=== PATIENT | female | born 1950 | race Caucasian/White ===

== ENCOUNTER 2022-01-10 22:07 | Inpatient (IN) ==
[2022-01-10] MEDS: SODIUM CHLORIDE 1,000 ML IV STA (22:37)
[2022-01-10 22:40] LABS: BASOPHILS % (AUTO) 0.1 % (0.0-3.0); HEMATOCRIT 27.3 % (37.0-47.0); IMMATURE GRANULOCYTE # (AUTO) 0.2 (0.0-1.0); IMMATURE GRANULOCYTE % (AUTO) 1.1 % (0.0-5.0); LYMPHOCYTES # (AUTO) 0.3 K/uL (0.60-3.4); LYMPHOCYTES % (AUTO) 1.5 (10.0-50.0); MEAN CORPUSCULAR HEMOGLOBIN 30.1 pg (27.0-31.0); MEAN CORPUSCULAR VOLUME 91.3 fl (81.0-99.0); MONOCYTES # (AUTO) 1.3 K/uL (0.4-2.0); MONOCYTES % (AUTO) 7.4 (0-10); NEUTROPHILS # (AUTO) 15.2 K/ul (2.0-6.9); NEUTROPHILS % (AUTO) 89.9 % (42.2-75.2); PLATELET COUNT 268 10^3/uL (140-440); RDW COEFFICIENT OF VARIATION 13.3 % (11.6-14.8); RED BLOOD COUNT 2.99 10^6/ul (4.20-5.40); WHITE BLOOD COUNT 16.96 K/ul (4.6-10.2)
--- NOTE | 2022-01-10 22:41 | DI ---
EXAM: Portable chest HISTORY: Fever COMPARISON: Single-view chest 03/10/2021 FINDINGS: Patient is mildly rotated to the left. Sternal wire sutures and to prostatic heart valve are noted. The cardiomediastinal silhouette is stable. There is a stable right-sided MediPort shan ter There is blunting of the left lateral costophrenic angle. Partial obscuration left hemidiaphrag m which may be related to left basilar atelectasis and/or pneumonia. IMPRESSION: Prior mediastinotomy with two prostatic heart valves. Left basilar atelectasis and/or pneumonia with likely trace left effusion
[2022-01-10 22:49] LABS: ABG O2 HGB 95.4 % (95-100); BEecf 30.4 (-2.0-3.0); COHb 3.7 (0.5-1.5); MetHb 1.2 (0-1.5); TCO2 53.6 (19-24); sO2 99.7 % (94-98); tHb 9.2 g/dl (11.7-17.4)
[2022-01-10 22:53] LABS: ALANINE AMINOTRANSFERASE 17.4 U/L (0-35); ALBUMIN 3.6 g/dL (3.5-5.0); ALKALINE PHOSPHATASE 72.1 U/L (53-141); ASPARTATE AMINO TRANSFERASE 45.3 U/L (14-36); BILIRUBIN,TOTAL 0.43 mg/dL (0.2-1.3); CALCIUM 8.48 mg/dL (8.4-10.2); CREATINE KINASE 21.7 U/L (30-135); CREATININE 0.74 mg/dL (0.60-1.30); GLUCOSE 205.9 mg/dL (74-106); POTASSIUM 3.39 mmol/L (3.5-5.1); TOTAL PROTEIN 7.25 g/dL (6.3-8.2)
[2022-01-10] MEDS ORDERED: DUONEB NEB STA ×2 (22:53→23:37)
[2022-01-10] MEDS ORDERED: DUONEB NEB ONE (22:53)
[2022-01-10 22:59] LABS: MOLECULAR FLU A NEGATIVE BY NAAT (NEGATIVE); MOLECULAR FLU B NEGATIVE BY NAAT (NEGATIVE)
--- NOTE | 2022-01-10 23:00 | ED.PDOC ---
General ED Provider: Dr. TIA OCHOA Chief Complaint: Fever Stated Complaint: Comes to the Er with fever and not acting normal. Less responsive to questions. She is a [place] resident. Time Seen by Provider: 01/10/22 22:14 Primary Care Provider: WALKER BAUM MD Nursing and Triage Documentation Reviewed and Agree: Yes Does patient meet sepsis criteria?: No System Inflammatory Response Syndrome: Not Applicable Sepsis Protocol: For patient's 13 years and over: Temp is 96.8 and below OR 101 and greater Pulse >90 BPM Resp >20/minute Acutely Altered Mental Status Are patient's symptoms suggestive of a new infection, such as: -Pneumonia -Skin, Soft Tissue -Endocarditis -UTI -Bone, Joint Infection -Implantable Device -Acute Abdominal Infection -Wound Infection -Meningitis -Blood Stream Catheter Infection -Unknown Review of Systems Review Of Systems Constitutional: Reports Fever Respiratory: Denies Cough Cardiac: Denies Chest pain GI: Denies Nausea or Vomiting All Other Systems: Other (limted) [facility] Medical History (Updated 01/10/22 @ 23:13 by TIA OCHOA MD) CHF (congestive heart failure) Diabetes mellitus Hypothyroidism Pneumonia Respiratory failure Social History (Updated 01/10/22 @ 23:00 by TIA OCHOA MD) Housing: [facility] Surgical History (Updated 01/10/22 @ 23:00 by TIA OCOHA MD) History of permanent cardiac pacemaker placement Physical Exam Physical Exam Appearance: Reports Ill-appearing Ill-appearing: Moderate Pain Distress: Mild Eyes: Reports BRITTANY, EOMI and Conjunctiva clear ENT: Reports Nose normal and Oropharynx normal Neck: Supple Respiratory: Reports Rhonchi (worse on the right ) Cardiovascular: Reports Pulses normal, No rub and No murmur GI/: Reports Soft, Nontender and No masses Musculoskeletal: Reports Normal strength and ROM intact Skin: Reports Warm and Dry Neurological: Reports Motor intact, Alert to verbal and Other (minimal response answers only yes or no to some questions.) Psychiatric: Reports Depressed Interpretation Radiology Interpretation Radiology Interpretation By: Radiologist Radiology Results: Positive (Prior mediastinotomy with two prostatic heart valves. 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 Critical Care Note Critical Care Note Total Critical Care Time (mins): 0 Course Course Hematology/Chemistry: 01/10/22 22:30 Orders, Labs, Meds: Lab Review 01/10/22 01/10/22 01/10/22 22:30 22:30 22:35 WBC 16.96 H RBC 2.99 L Hgb 9.0 L Hct 27.3 L MCV 91.3 MCH 30.1 MCHC 33.0 RDW Coeff of Linda 13.3 Plt Count 268 Immature Gran % (Auto) 1.1 Neut % (Auto) 89.9 H Lymph % (Auto) 1.5 L [place] % (Auto) 7.4 Eos % (Auto) 0.0 Baso % (Auto) 0.1 Neut # (Auto) 15.2 H Lymph # (Auto) 0.3 L [place] # (Auto) 1.3 Eos # (Auto) 0.0 Baso # (Auto) 0.0 Immature Gran # (Auto) 0.2 Puncture Site Base Excess O2 Saturation ABG pH ABG pCO2 ABG pO2 ABG HCO3 ABG Total CO2 Drew Test Hemoglobin Oxyhemoglobin Carboxyhemoglobin Total Hemoglobin O2 Delivery Device Oxygen Liter Flow Lactic Acid 1.30 Influ A Molecular Assay Negative by naat Influ B Molecular Assay Negative by naat RSV Antigen Pending 01/10/22 22:40 WBC RBC Hgb Hct MCV MCH MCHC RDW Coeff of Linda Plt Count Immature Gran % (Auto) Neut % (Auto) Lymph % (Auto) [place] % (Auto) Eos % (Auto) Baso % (Auto) Neut # (Auto) Lymph # (Auto) [place] # (Auto) Eos # (Auto) Baso # (Auto) Immature Gran # (Auto) Puncture Site Rb Base Excess 30.4 H O2 Saturation 99.7 H ABG pH 7.60 H* ABG pCO2 53.0 H ABG pO2 176.0 H ABG HCO3 52.0 H ABG Total CO2 53.6 H Drew Test + Hemoglobin 1.2 Oxyhemoglobin 95.4 Carboxyhemoglobin 3.7 H Total Hemoglobin 9.2 L O2 Delivery Device Cannula Oxygen Liter Flow 2.00 Lactic Acid Influ A Molecular Assay Influ B Molecular Assay RSV Antigen Orders Category Date Time Status ABG DRAW REQUEST Stat CARDIO 01/10/22 22:15 Ordered EKG-(ED ONLY) Stat CARDIO 01/10/22 22:14 Ordered NEBULIZER TREATMENT Stat CARDIO 01/10/22 22:54 Ordered ED FOAM RUBBER FABRICATOR APPLIED .ONCE EMERGENCY 01/10/22 22:14 Active ED IV/MEDIPORT/POWERPORT .ONCE EMERGENCY 01/10/22 22:14 Active ABG COOX Stat LAB 01/10/22 22:40 Completed BLOOD CULTURE (ED ONLY) Stat LAB 01/10/22 22:30 Received CBC W/ AUTO DIFF Stat LAB 01/10/22 22:30 Completed COMPREHENSIVE METABOLIC PANEL Stat LAB 01/10/22 22:30 Received CREATINE KINASE Stat LAB 01/10/22 22:30 Received LACTIC ACID Stat LAB 01/10/22 22:30 Completed MOLECULAR FLU A & B [FLU A/B MOLECULAR] Stat LAB 01/10/22 22:35 Results PROCALCITONIN Stat LAB 01/10/22 22:30 Received RSV Stat LAB 01/10/22 22:35 Results SARS COV-2 RNA RAPID LUKE Stat LAB 01/10/22 22:35 Received TROPONIN I Stat LAB 01/10/22 22:30 Received URINALYSIS C & S IF INDICATED Stat LAB 01/10/22 22:14 Uncollected 0.9 % Sodium Chloride [Saline Flush] MEDS 01/10/22 22:14 Active 1 syr IVF PRN PRN Ipratropium/Albuterol Neb [Duoneb] MEDS 01/10/22 22:53 Discontinued 3 ml NEB .STK-MED ONE Ipratropium/Albuterol Neb [Duoneb] MEDS 01/10/22 22:53 Discontinued 3 ml NEB ONCE STA Sodium Chloride 0.9% [Sodium Chloride] 1,000 ml MEDS 01/10/22 22:14 Active IV 100 mls/hr CHEST, 1V AP ONLY Stat RADS 01/10/22 22:14 Completed Medications Generic Name Dose Route Start Last Admin Trade Name Freq PRN Reason Stop Dose Admin Sodium Chloride 1,000 mls @ 100 mls/hr 01/10/22 22:14 01/10/22 22:37 Sodium Chloride IV 01/11/22 08:13 100 mls/hr .Q10H STA Administration Sodium Chloride 1 syr 01/10/22 22:14 0.9% Sodium Chloride 10 Ml Disp.Syrin IVF PRN PRN To flush IV Discontinued Medications Generic Name Dose Route Start Last Admin Trade Name Freq PRN Reason Stop Dose Admin Albuterol/Ipratropium 3 ml 01/10/22 22:53 Ipratropium/Albuterol Vial.Neb NEB 01/10/22 22:54 ONCE STA Discharge Plan Discharge Patient Disposition: ADMITTED INPATIENT Discharge Problem: Hospital acquired PNA, Fever Did you review [place] [facility] [employer] [facility] DIRECTOR?: Not Applicable Discussed opioids are addictive and Narcan is available by prescription or from pharmacy.: No ED Provider: TIA OCHOA Condition: Fair Physician Progress Note: []
[2022-01-10 23:01] LABS: CARBON DIOXIDE 42.2 mmol/L (22-30.0); CHLORIDE 71.5 mmol/L (98-107)
[2022-01-10 23:05] LABS: TROPONIN I 0.068 ng/ml (0.0000-0.120)
[2022-01-10 23:07] LABS: RSV MOLECULAR NEGATIVE BY NAAT (NEGATIVE)
[2022-01-10] MEDS ORDERED: CLEOCIN 900 MG/50 ML D5W 900 MG/50 ML BAG IV ONE (23:07)
[2022-01-10] MEDS ORDERED: TYLENOL PO PRN (23:37)
[2022-01-10] MEDS ORDERED: SODIUM CHLORIDE 500 ML IV STA (23:42)
[2022-01-11 00:25] LABS: AMORPHOUS SEDIMENT,UR TRACE (NOT PRESENT); BILIRUBIN,URINE Negative (NEGATIVE); CLARITY,URINE Slightly (CLEAR); COLOR,URINE Yellow (YELLOW); GLUCOSE, URINE (UA) Negative (NEGATIVE); KETONES,URINE Negative (NEGATIVE); LEUKOCYTE ESTERASE ,URINE Negative (NEGATIVE); NITRITE,URINE Negative (NEGATIVE); PH,URINE 5.5 (5-9); PROTEIN,URINE 2+ (NEGATIVE); URINE, BLOOD Trace-intact (NEGATIVE); UROBILINOGEN,URINE 0.2 (0.2)
[2022-01-11 02:24] VITALS: BMI 20.7
[2022-01-11] MEDS ORDERED: CLEOCIN 900 MG/50 ML D5W 900 MG/50 ML BAG IV SCH (05:00)
[2022-01-11 05:34] LABS: HEMOGLOBIN 8.2 g/dl (12.0-16.0); MEAN CORPUSCULAR HEMOGLOBIN 30.4 pg (27.0-31.0); MEAN CORPUSCULAR HGB CONC 32.8 (31.8-35.4); MEAN CORPUSCULAR VOLUME 92.6 fl (81.0-99.0); PLATELET COUNT 253 10^3/uL (140-440); RDW COEFFICIENT OF VARIATION 13.4 % (11.6-14.8); WHITE BLOOD COUNT 14.99 K/ul (4.6-10.2)
[2022-01-11 05:42] LABS: ALANINE AMINOTRANSFERASE 15.5 U/L (0-35); ALBUMIN 3.36 g/dL (3.5-5.0); ALKALINE PHOSPHATASE 67.6 U/L (53-141); ASPARTATE AMINO TRANSFERASE 33.5 U/L (14-36); BILIRUBIN,TOTAL 0.36 mg/dL (0.2-1.3); BLOOD UREA NITROGEN 14.5 mg/dL (7-17); CALCIUM 8.22 mg/dL (8.4-10.2); CREATININE 0.66 mg/dL (0.60-1.30); GLUCOSE 139.2 mg/dL (74-106); POTASSIUM 3.24 mmol/L (3.5-5.1); SODIUM 122.6 mmol/L (134.5-145); TOTAL PROTEIN 6.83 g/dL (6.3-8.2)
[2022-01-11 05:46] LABS: ANISOCYTOSIS NOT PRESENT (NOT PRESENT)
[2022-01-11 06:10] LABS: CARBON DIOXIDE 40.5 mmol/L (22-30.0)
[2022-01-11] MEDS ORDERED: RESTORIL PO PRN (06:41)
[2022-01-11] MEDS: LASIX TAB PO SCH (08:48)
[2022-01-11] MEDS: JANUVIA PO SCH (08:49)
[2022-01-11] MEDS: COLACE PO SCH ×2 (08:49→20:05)
[2022-01-11] MEDS: SYNTHROID PO SCH (08:49)
[2022-01-11] MEDS: ASPIRIN EC PO SCH (08:49)
[2022-01-11] MEDS: BUSPAR PO SCH ×2 (08:49→20:05)
[2022-01-11] MEDS: LOPRESSOR PO SCH ×2 (08:49→20:05)
[2022-01-11] MEDS: BREXPIPRAZOLE 0.5 MG PO SCH (08:50)
[2022-01-11] MEDS: MUCINEX PO SCH ×2 (08:50→20:06)
[2022-01-11] MEDS: ROBAXIN PO SCH (08:50)
[2022-01-11] MEDS: ATIVAN PO SCH ×3 (08:50→20:05)
[2022-01-11] MEDS: LOVENOX SUBCUT SCH (08:51)
[2022-01-11] MEDS: MIRALAX PO SCH (08:51)
[2022-01-11] MEDS ORDERED: ROBAXIN PO SCH (09:00)
[2022-01-11] MEDS ORDERED: GUAIFENESIN 600 MG PO SCH (09:00)
[2022-01-11] MEDS ORDERED: DECADRON IVP SCH (09:00)
[2022-01-11] MEDS ORDERED: POLYETHYLENE GLYCOL PO SCH (09:00)
[2022-01-11] MEDS ORDERED: NON-FORMULARY MEDICATION (Aspirin 81 mg Tablet) PO SCH (09:00)
[2022-01-11] MEDS ORDERED: DUONEB NEB ONE (10:17)
--- NOTE | 2022-01-11 10:54 | PCM.PROG ---
Date Seen by Provider: 01/11/22 Time Seen by Provider: 09:30 Subjective: Patient has no complaints. Objective: Vitals: T=97.4 F, P=86, R=20, TQ=124/72, SPO2=94 Alert and in no respiratory distress. Coughing intermittently during examination. HEENT: [] Neck: [] No JVD. Lungs: [] Breath sounds equal though decreased. Scattered wheezes. CVS: [] RRR Abdomen: [] Soft, nontender. Extremities: [] Neurological: [] Skin: [] Lab/Tests/Diagnostic Imaging: [] (1) Hospital acquired PNA: Status: Acute Code(s): J18.9 - Pneumonia, unspecified organism; Y95 - Nosocomial condition SNOMED Code(s): 742120508 (2) Diabetes mellitus: Status: Acute Code(s): E11.9 - Type 2 diabetes mellitus without complications SNOMED Code(s): 84300466 (3) COPD (chronic obstructive pulmonary disease): Status: Acute Code(s): J44.9 - Chronic obstructive pulmonary disease, unspecified SNOMED Code(s): 61826511 (4) Respiratory failure with hypercapnia: Status: Acute Code(s): J96.92 - Respiratory failure, unspecified with hypercapnia SNOMED Code(s): 140790009 (5) Hyponatremia: Status: Acute Code(s): E87.1 - Hypo-osmolality and hyponatremia SNOMED Code(s): 78360047 (6) Hypokalemia: Status: Acute Code(s): E87.6 - Hypokalemia SNOMED Code(s): 42531032 (7) Anemia: Status: Acute Code(s): D64.9 - Anemia, unspecified SNOMED Code(s): 045484717 Plan: Will change antibiotics to zosyn from cleocin. Add steroids and nebs. Hemoccult stool. Check iron studies, B12 and folate. IV normal saline for hyponatremia and dehydration. Replace potassium.
[2022-01-11] MEDS: SOLU-MEDROL 125 MG IVP SCH ×2 (11:04→20:26)
[2022-01-11] MEDS ORDERED: K-DUR PO STA (11:04)
[2022-01-11] MEDS: SODIUM CHLORIDE 500 ML IV SCH ×3 (11:23→23:08)
--- NOTE | 2022-01-11 11:35 | DI ---
EXAM: Chest one view HISTORY: Congestion, shortness of air COMPARISON: 01/10/2022 TECHNIQUE: Single view of the chest was performed FINDINGS: Right chest port appears unchanged. Small left pleural effusion with left basilar atelect asis and/or consolidation. No visible pneumothorax. Heart and mediastinal contour unchanged. Prost hetic valve. Atherosclerosis. Median sternotomy wires. IMPRESSION: Small left pleural effusion with left basilar atelectasis and/or pneumonia
[2022-01-11] MEDS: ZOSYN 4.5 GM 4.5 GM in SODIUM CHLORIDE 100ML 100 ML IV SCH ×3 (12:00→23:45)
[2022-01-11] MEDS: ZOFRAN 4 MG/2 ML IVP PRN (12:30)
[2022-01-11] MEDS: DUONEB NEB SCH ×3 (13:45→21:30)
[2022-01-11] MEDS ORDERED: DUONEB NEB SCH (14:00)
[2022-01-11] MEDS: SODIUM CHLORIDE 1,000 ML IV SCH (20:28)
[2022-01-12] MEDS: DUONEB NEB SCH ×6 (01:40→21:20)
[2022-01-12] MEDS: ZOSYN 4.5 GM 4.5 GM in SODIUM CHLORIDE 100ML 100 ML IV SCH ×3 (05:25→18:23)
[2022-01-12] MEDS: SYNTHROID PO SCH (05:29)
[2022-01-12] MEDS: SODIUM CHLORIDE 1,000 ML IV STA (05:43)
[2022-01-12] MEDS: SODIUM CHLORIDE 1,000 ML IV SCH (05:44)
[2022-01-12] MEDS: LASIX TAB PO SCH (05:48)
[2022-01-12] MEDS: ATIVAN PO SCH ×4 (06:08→20:59)
[2022-01-12] MEDS ORDERED: DUONEB NEB STA (06:08)
[2022-01-12] MEDS ORDERED: ROBITUSSIN DM SYRUP PO PRN (06:08)
[2022-01-12 06:16] LABS: BASOPHILS % (AUTO) 0.1 % (0.0-3.0); HEMATOCRIT 25.8 % (37.0-47.0); HEMOGLOBIN 8.2 g/dl (12.0-16.0); IMMATURE GRANULOCYTE # (AUTO) 0.2 (0.0-1.0); IMMATURE GRANULOCYTE % (AUTO) 2.1 % (0.0-5.0); LYMPHOCYTES # (AUTO) 0.3 K/uL (0.60-3.4); MEAN CORPUSCULAR HEMOGLOBIN 30.1 pg (27.0-31.0); MEAN CORPUSCULAR HGB CONC 31.8 (31.8-35.4); MEAN CORPUSCULAR VOLUME 94.9 fl (81.0-99.0); MONOCYTES # (AUTO) 0.8 K/uL (0.4-2.0); MONOCYTES % (AUTO) 7.1 (0-10); NEUTROPHILS # (AUTO) 9.3 K/ul (2.0-6.9); NEUTROPHILS % (AUTO) 87.7 % (42.2-75.2); PLATELET COUNT 280 10^3/uL (140-440); RDW COEFFICIENT OF VARIATION 13.9 % (11.6-14.8); RED BLOOD COUNT 2.72 10^6/ul (4.20-5.40); WHITE BLOOD COUNT 10.63 K/ul (4.6-10.2)
--- NOTE | 2022-01-12 06:20 | PCM.PROG ---
Date Seen by Provider: 01/12/22 Time Seen by Provider: 06:11 Subjective: Patient was admitted 2 days ago with noted decreased responsiveness and cough. She was diagnosed with NH acquired pneumonia and Hyponatremia. She is more last today and states she feels better asking when she can go back to the NH. Continues to have a productive cough states she needs another breathing treatment as the one she had this morning she did not take deep enough. Objective: Vitals: T=99.0 F, P=120, R=20, UQ=207/87, SPO2=95 More alert and awake HEENT: [Mucus membranes moist , Pupils Equal and reactive Bilaterally ] Neck: [tilted to the right (chronic)] Lungs: [Course breath sound bilaterally upper and lower lung amaro. ] CVS: [Regular, tachycardic ] Abdomen: [Decreased breath sounds] Extremities: [no edema ] Neurological: [Moves all fours, awake and alert] Skin: [no rash] Psych ; Anxious appearing. Lab/Tests/Diagnostic Imaging: [] (1) Hospital acquired PNA: Status: Acute Code(s): J18.9 - Pneumonia, unspecified organism; Y95 - Nosocomial condition SNOMED Code(s): 357416665 (2) Hyponatremia: Status: Acute Code(s): E87.1 - Hypo-osmolality and hyponatremia SNOMED Code(s): 53372528 (3) COPD (chronic obstructive pulmonary disease): Status: Acute Code(s): J44.9 - Chronic obstructive pulmonary disease, unspecified SNOMED Code(s): 71372427 (4) Diabetes mellitus: Status: Acute Code(s): E11.9 - Type 2 diabetes mellitus without complications SNOMED Code(s): 59282127 (5) Respiratory failure with hypercapnia: Status: Acute Code(s): J96.92 - Respiratory failure, unspecified with hypercapnia SNOMED Code(s): 448205802 (6) Hypokalemia: Status: Acute Code(s): E87.6 - Hypokalemia SNOMED Code(s): 42885081 (7) Anemia: Status: Acute Code(s): D64.9 - Anemia, unspecified SNOMED Code(s): 890388846
[2022-01-12 06:31] LABS: ALBUMIN 3.25 g/dL (3.5-5.0); ALKALINE PHOSPHATASE 58.7 U/L (53-141); ASPARTATE AMINO TRANSFERASE 33.1 U/L (14-36); BILIRUBIN,TOTAL 0.33 mg/dL (0.2-1.3); BLOOD UREA NITROGEN 13.2 mg/dL (7-17); CALCIUM 7.7 mg/dL (8.4-10.2); CARBON DIOXIDE 37.4 mmol/L (22-30.0); CHLORIDE 88.7 mmol/L (98-107); CREATININE 0.49 mg/dL (0.60-1.30); GLUCOSE 180.1 mg/dL (74-106); POTASSIUM 3.58 mmol/L (3.5-5.1); SODIUM 129.3 mmol/L (134.5-145); TOTAL PROTEIN 6.7 g/dL (6.3-8.2)
[2022-01-12] MEDS ORDERED: LASIX IVP STA (06:39)
[2022-01-12] MEDS: LOVENOX SUBCUT SCH (09:20)
[2022-01-12] MEDS: MIRALAX PO SCH (09:20)
[2022-01-12] MEDS: SOLU-MEDROL 125 MG IVP SCH ×2 (09:20→20:51)
[2022-01-12] MEDS: JANUVIA PO SCH (09:20)
[2022-01-12] MEDS: ROBAXIN PO SCH (09:21)
[2022-01-12] MEDS: BUSPAR PO SCH ×2 (09:21→20:59)
[2022-01-12] MEDS: BREXPIPRAZOLE 0.5 MG PO SCH (09:24)
[2022-01-12] MEDS: COLACE PO SCH ×2 (09:24→20:57)
[2022-01-12] MEDS: ASPIRIN EC PO SCH (09:24)
[2022-01-12] MEDS: LOPRESSOR PO SCH ×2 (09:24→20:57)
[2022-01-12] MEDS: ZOFRAN 4 MG/2 ML IVP PRN (11:40)
[2022-01-12 15:15] LABS: OCCULT BLOOD SAMPLE 1 POSITIVE (NEGATIVE)
[2022-01-13 00:23] LABS: OCCULT BLOOD SAMPLE 2 NO SPECIMEN RECEIVED (NEGATIVE); OCCULT BLOOD SAMPLE 3 NO SPECIMEN RECEIVED (NEGATIVE)
[2022-01-13] MEDS: ZOSYN 4.5 GM 4.5 GM in SODIUM CHLORIDE 100ML 100 ML IV SCH ×3 (01:11→11:21)
[2022-01-13] MEDS: DUONEB NEB SCH ×4 (03:23→14:09)
[2022-01-13] MEDS: LASIX TAB PO SCH (05:42)
[2022-01-13] MEDS: SYNTHROID PO SCH (05:43)
[2022-01-13 07:49] LABS: BASOPHILS % (AUTO) 0.1 % (0.0-3.0); HEMATOCRIT 29.6 % (37.0-47.0); HEMOGLOBIN 9.3 g/dl (12.0-16.0); IMMATURE GRANULOCYTE # (AUTO) 0.2 (0.0-1.0); IMMATURE GRANULOCYTE % (AUTO) 1.7 % (0.0-5.0); LYMPHOCYTES # (AUTO) 0.4 K/uL (0.60-3.4); LYMPHOCYTES % (AUTO) 3.1 (10.0-50.0); MEAN CORPUSCULAR HGB CONC 31.4 (31.8-35.4); MEAN CORPUSCULAR VOLUME 95.5 fl (81.0-99.0); MONOCYTES # (AUTO) 1.1 K/uL (0.4-2.0); MONOCYTES % (AUTO) 8.4 (0-10); NEUTROPHILS # (AUTO) 11.3 K/ul (2.0-6.9); NEUTROPHILS % (AUTO) 86.7 % (42.2-75.2); PLATELET COUNT 297 10^3/uL (140-440); RDW COEFFICIENT OF VARIATION 14.2 % (11.6-14.8); WHITE BLOOD COUNT 13.02 K/ul (4.6-10.2)
[2022-01-13 08:00] LABS: ALANINE AMINOTRANSFERASE 25.4 U/L (0-35); ALBUMIN 3.85 g/dL (3.5-5.0); ALKALINE PHOSPHATASE 63.4 U/L (53-141); BILIRUBIN,TOTAL 0.61 mg/dL (0.2-1.3); BLOOD UREA NITROGEN 14.1 mg/dL (7-17); CALCIUM 8.44 mg/dL (8.4-10.2); CHLORIDE 84.2 mmol/L (98-107); CREATININE 0.59 mg/dL (0.60-1.30); GLUCOSE 162.7 mg/dL (74-106); POTASSIUM 2.96 mmol/L (3.5-5.1); SODIUM 131.7 mmol/L (134.5-145); TOTAL PROTEIN 7.51 g/dL (6.3-8.2)
[2022-01-13 08:17] LABS: CARBON DIOXIDE 41.1 mmol/L (22-30.0)
[2022-01-13 08:23] LABS: ANISOCYTOSIS 3+ (NOT PRESENT); HYPOCHROMASIA 3+ (NOT PRESENT)
[2022-01-13] MEDS: ATIVAN PO SCH ×2 (09:40→14:53)
[2022-01-13] MEDS: BUSPAR PO SCH (09:40)
[2022-01-13] MEDS: ROBAXIN PO SCH (09:40)
[2022-01-13] MEDS: BREXPIPRAZOLE 0.5 MG PO SCH (09:40)
[2022-01-13] MEDS: ASPIRIN EC PO SCH (09:40)
[2022-01-13] MEDS: JANUVIA PO SCH (09:40)
[2022-01-13] MEDS: LOPRESSOR PO SCH (09:40)
[2022-01-13] MEDS: COLACE PO SCH (09:40)
[2022-01-13] MEDS: LOVENOX SUBCUT SCH (09:40)
[2022-01-13] MEDS: MIRALAX PO SCH (09:40)
--- NOTE | 2022-01-13 10:43 | PCM.DC ---
Final Diagnosis: Pneumonia Hypokalemia Physical Exam Appearance: Well-appearing (Elderly female), No pain distress and Well-nourished Ill-appearing: None Pain Distress: None Eyes: BRITTANY, EOMI and Conjunctiva clear ENT: Oropharynx normal Neck: Supple Respiratory: Airway patent, Breath sounds equal, Respirations nonlabored and Rhonchi (Occasional bilateral) Cardiovascular: RRR, Pulses normal, No rub and No murmur GI/: Soft, Nontender, No masses, Bowel sounds normal and No Organomegaly Musculoskeletal: Normal strength, ROM intact, No edema and No calf tenderness Skin: Warm, Dry and Normal color Neurological: Sensation intact, Motor intact, Reflexes intact, Cranial nerves intact, Alert and Oriented Psychiatric: Affect appropriate and Mood appropriate (1) Hospital acquired PNA: Status: Acute Code(s): J18.9 - Pneumonia, unspecified organism; Y95 - Nosocomial condition SNOMED Code(s): 491083380 (2) Hyponatremia: Status: Acute Code(s): E87.1 - Hypo-osmolality and hyponatremia SNOMED Code(s): 34224152 (3) COPD (chronic obstructive pulmonary disease): Status: Acute Code(s): J44.9 - Chronic obstructive pulmonary disease, unspecified SNOMED Code(s): 34710855 (4) Diabetes mellitus: Status: Acute Code(s): E11.9 - Type 2 diabetes mellitus without complications SNOMED Code(s): 31088237 (5) Respiratory failure with hypercapnia: Status: Acute Code(s): J96.92 - Respiratory failure, unspecified with hypercapnia SNOMED Code(s): 963688183 (6) Hypokalemia: Status: Acute Code(s): E87.6 - Hypokalemia SNOMED Code(s): 25059381 (7) Anemia: Status: Acute Code(s): D64.9 - Anemia, unspecified SNOMED Code(s): 343884725 Reason for Hospitalization: 1. Pneumonia 1. Fever Prognosis/Condition at Discharge: Fair Medications at Discharge: Clindamycin K -dur Lab/Diagnostics: WBC of 13.0, Na 132. K+ of 3.0 Education Provided to Patient and Family: Continue the antibiotics to completion and take the K dur for the next 10 days. Recheck the chemistries in about a week. Follow-ups: 1. [facility] provider in about a week. Discharge Disposition: [facility] Hospital Course: 1. Pt was admitted. she was treated with antibiotics and has been improving. No feeling much better and desiring to return to halfway. Plan: 1. Treat ppneumonia with another week of clindamycin. Give potassium for the next 10 days.
[2022-01-13] MEDS ORDERED: K-DUR PO ONE (10:54)
[2022-01-13 11:04] VITALS: BP 122/61; TEMP 96
[2022-01-13] MEDS: SOLU-MEDROL 125 MG IVP SCH (12:03)
== END 2022-01-13 16:30 | DRG 193 ==
LOC: ED 22:07 → MEDSURG A 01-11 00:46
PROVIDERS: ADMIT Internal Medicine Geriatric Medicine; ATTEND Emergency Medicine
DX: R06.02 Shortness of breath; E87.6 Hypokalemia; E03.9 Hypothyroidism, unspecified; Z79.899 Other long term (current) drug therapy; Z79.82 Long term (current) use of aspirin; I50.9 Heart failure, unspecified; J96.92 Respiratory failure, unspecified with hypercapnia; E11.9 Type 2 diabetes mellitus without complications; J44.9 Chronic obstructive pulmonary disease, unspecified; D64.9 Anemia, unspecified; Z20.822 Contact with and (suspected) exposure to COVID-19; I11.0 Hypertensive heart disease with heart failure; Z95.0 Presence of cardiac pacemaker; E87.1 Hypo-osmolality and hyponatremia; Z79.84 Long term (current) use of oral hypoglycemic drugs; R41.89 Other symptoms and signs involving cognitive functions and awareness; E86.0 Dehydration; Z99.81 Dependence on supplemental oxygen; Z51.81 Encounter for therapeutic drug level monitoring; J18.9 Pneumonia, unspecified organism; Z95.2 Presence of prosthetic heart valve